=== PATIENT | male | born 1980 | race Two or more races ===

== ENCOUNTER 2022-02-23 19:04 | Emergency (ER) | payer OTHER ==
[~2022-02-23] VITALS: Ht 175.3 cm; Wt 79.4 kg
[~2022-02-23 19:04] MED LIST: ALPR.5 PO; ASPI325 PO; CETI5 PO
[2022-02-23] MEDS ORDERED: Percocet 5-3251 EACH PO (20:07)
== END 2022-02-23 20:13 | disposition home or self-care (01) ==
LOC: ER 19:04
DX: S22.32XA Fracture of one rib, left side, initial encounter for closed fracture (principal); W01.0XXA Fall on same level from slipping, tripping and stumbling without subsequent striking against object, initial encounter
CPT/HCPCS: 71101; 99283-25; A9270

== ENCOUNTER → 2023-07-29 | Outpatient (CLI) | payer OTHER ==
[~2023-07-29] MED LIST changes: +Percocet 5-3251 EACH PO
[2023-08-02 00:05] LABS: APTIMA MEDIA TYPE Urine; C. TRACHOMATIS BY TMA Negative (Negative); N. GONORRHOEAE BY TMA Negative (Negative); SPECIMEN SOURCE Urine
[2023-08-02 00:23] LABS: HIV-1 QNT BY NAAT (COPIES/ML) Not Detected cpy/mL; HIV-1 QNT BY NAAT INTERP Not Detected (Not Detected); HIV-1 QNT NAAT (LOG COPIES/ML) Not Detected
== END ==
LOC: LAB 17:32 → LAB SHORT 17:32
PROVIDERS: Physician Assistant
DX: Z20.9 Contact with and (suspected) exposure to unspecified communicable disease (principal); R36.9 Urethral discharge, unspecified
CPT/HCPCS: 86592; 87491; 87536; 87591

== ENCOUNTER → 2023-08-02 | Outpatient (CLI) | payer OTHER ==
[2023-08-03 11:49] LABS: Candida species (DNA Probe) Negative (NEGATIVE); G. vaginalis (DNA Probe) Negative (NEGATIVE); T. vaginalis (DNA Probe) Negative (NEGATIVE)
== END | disposition home or self-care (01) ==
LOC: LAB 14:10 → LAB SHORT 14:10
PROVIDERS: Physician Assistant
DX: R36.9 Urethral discharge, unspecified (principal)
CPT/HCPCS: 87480; 87510; 87660

== ENCOUNTER 2024-12-17 16:44 | Emergency (ER) | payer OTHER ==
[~2024-12-17] VITALS: Ht 175.3 cm; Wt 80.7 kg
[2024-12-17 18:07] LABS: BASOPHILS ABSOLUTE AUTO 0.04 K/mm3 (0.00-0.23); BASOPHILS PERCENT AUTO 1 % (0-2); EOSINOPHILS ABSOLUTE AUTO 0.04 K/mm3 (0.00-0.68); EOSINOPHILS PERCENT AUTO 1 % (0-6); Hematocrit 43.1 % (37.0-53.0); Hemoglobin 15.1 g/dL (13.5-17.5); IMMATURE GRAN ABSOLUTE AUTO 0.01 K/mm3 (0.00-0.10); IMMATURE GRAN PERCENT AUTO 0 % (0-1); LYMPHOCYTES ABSOLUTE AUTO 1.39 K/mm3 (0.84-5.20); LYMPHOCYTES PERCENT AUTO 17 % (21-46); MONOCYTES PERCENT AUTO 10 % (4-13); Mean Corpuscular Volume 89 fL (80-100); Mean Platelet Volume 9.6 fL (9.1-12.4); NEUTROPHILS ABSOLUTE AUTO 5.88 K/mm3 (1.96-9.15); NEUTROPHILS PERCENT AUTO 72 % (41-73); Platelet Count 285 K/mm3 (150-400); RDW Coefficient Variation 12.8 % (11.7-14.2); RDW Standard Deviation 41.4 fL (35.1-46.3); Red Blood Cell Count 4.87 M/mm3 (4.30-5.90); White Blood Cell Count 8.16 K/mm3 (4.00-11.30)
[2024-12-17 18:23] LABS: Albumin, Blood 4.5 g/dL (3.4-5.0); Albumin/Globulin Ratio 1.5 (0.8-1.8); Bilirubin, Total 1.1 mg/dL (0.1-1.0); Bun/Creatinine Ratio 24.9 (12.0-20.0); Calcium, Blood 9.2 mg/dL (8.5-10.1); Creatinine, Blood 0.68 mg/dL (0.60-1.20); Potassium, Blood 3.9 mmol/L (3.5-5.5); Total Protein, Blood 7.5 g/dL (6.4-8.2)
[2024-12-17 19:57] VITALS: BP 156/114
== END 2024-12-17 20:04 | disposition home or self-care (01) ==
LOC: ER 16:44
PROVIDERS: Student in an Organized Health Care Education/Training Program
DX: R20.2 Paresthesia of skin (principal); R29.818 Other symptoms and signs involving the nervous system
CPT/HCPCS: 70450; 80053; 85025; 93005; 93010; 99284-25

== ENCOUNTER 2025-05-21 09:54 | Day surgery (SDC) | payer OTHER ==
[~2025-05-21] VITALS: Ht 175.3 cm; Wt 82.2 kg
[2025-05-21] MEDS ORDERED: Midazolam HCl 1MG / ML 2ML Vial ONE (10:10)
[2025-05-21] MEDS ORDERED: FentaNYL Citrate 50 MCG/ML 2 ML Injection ONE (10:10)
[2025-05-21] MEDS ORDERED: Dexamethasone Sod Phos 10 MG/ML 1ML VIAL ONE (10:11)
[2025-05-21] MEDS ORDERED: Ondansetron HCl 2 MG / ML 2ML Vial ONE (10:11)
[2025-05-21] MEDS ORDERED: ACYC400 PO (10:18)
[2025-05-21] MEDS ORDERED: PRED20 PO (10:18)
[2025-05-21] MEDS ORDERED: MELO7.5 (10:19)
[2025-05-21] MEDS ORDERED: CeFAZolin Sodium 2,000 MG VIAL ONE (10:35)
[2025-05-21] MEDS ORDERED: Bupivacaine 0.5% W/EPI 1:200000 SDV 30 ML Vial ONE (11:37)
[2025-05-21] MEDS ORDERED: Phenylephrine HCl 100 MCG/ML-NS 10MLSYR (1MG/10ML) ONE (12:22)
--- NOTE | 2025-05-21 13:49 | NUR ---
05/21/25 1349 Nita Evans PATIENT UP TO RECLINER, STATES PAIN IS UNCOMFORTABLE AND STATES IT IS "MORE THAN IT WAS WHEN FIRST CAME OUT OF OR"
[2025-05-21 14:03] VITALS: BP 122/77
== END 2025-05-21 14:48 | disposition home or self-care (01) ==
LOC: ORSCSDS 09:54
PROVIDERS: Orthopaedic Surgery
PROC: 0SBD4ZZ Excision of Left Knee Joint, Percutaneous Endoscopic Approach (ICD-10-PCS; principal; 2025-05-21 11:55)
DX: M23.201 Derangement of unspecified lateral meniscus due to old tear or injury, left knee (principal); M23.222 Derangement of posterior horn of medial meniscus due to old tear or injury, left knee; F17.290 Nicotine dependence, other tobacco product, uncomplicated; G47.33 Obstructive sleep apnea (adult) (pediatric); F41.9 Anxiety disorder, unspecified; Z79.899 Other long term (current) drug therapy
CPT/HCPCS: A9270; J0166; J0690; J1100; J1720; J2250; J2371; J2405; J2704; J3010; J7120

== ENCOUNTER 2025-06-23 01:22 | Day surgery (SDC) | payer OTHER ==
[2025-06-23] VITALS (12 sets, daily range): BP systolic 115–137; BP diastolic 72–96
[~2025-06-23] VITALS: Ht 175.3 cm; Wt 84.7 kg
[~2025-06-23 01:22] MED LIST changes: +ACYC400 PO; +Dexamethasone Sod Phos 10 MG/ML 1ML VIAL IV SCH; +MELO7.5; +PRED20 PO
[2025-06-23] MEDS ORDERED: IMMUN GLOB G(IGG)/PRO/IGA 0-50 100 ML IV SCH (06:00)
[2025-06-23] MEDS ORDERED: Dexamethasone Sod Phos 10 MG/ML 1ML VIAL IV SCH (07:05)
[2025-06-23 08:02] LABS: BASOPHILS ABSOLUTE AUTO 0.04 K/mm3 (0.00-0.23); BASOPHILS PERCENT AUTO 1 % (0-2); EOSINOPHILS ABSOLUTE AUTO 0.12 K/mm3 (0.00-0.68); EOSINOPHILS PERCENT AUTO 2 % (0-6); Hematocrit 45.6 % (37.0-53.0); Hemoglobin 15.9 g/dL (13.5-17.5); IMMATURE GRAN ABSOLUTE AUTO 0.01 K/mm3 (0.00-0.10); IMMATURE GRAN PERCENT AUTO 0 % (0-1); LYMPHOCYTES ABSOLUTE AUTO 2.78 K/mm3 (0.84-5.20); LYMPHOCYTES PERCENT AUTO 38 % (21-46); MONOCYTES ABSOLUTE AUTO 0.88 K/mm3 (0.16-1.47); MONOCYTES PERCENT AUTO 12 % (4-13); Mean Corpuscular HGB Conc 34.9 g/dL (31.5-36.5); Mean Corpuscular Volume 88 fL (80-100); NEUTROPHILS ABSOLUTE AUTO 3.54 K/mm3 (1.96-9.15); NEUTROPHILS PERCENT AUTO 48 % (41-73); NRBC ABSOLUTE 0.00 K/mm3 (0.00-0.02); NRBC Auto 0.0 /100 WBC (0.0-0.2); Platelet Count 293 K/mm3 (150-400); RDW Coefficient Variation 13.3 % (11.7-14.2); RDW Standard Deviation 43.3 fL (35.1-46.3)
[2025-06-23 08:27] LABS: Blood Urea Nitrogen 18.0 mg/dL (8-24); Creatinine, Blood 0.77 mg/dL (0.60-1.20)
== END 2025-06-23 12:26 | disposition home or self-care (01) ==
LOC: ATC 01:22
PROVIDERS: Psychiatry & Neurology Neurology
DX: G61.81 Chronic inflammatory demyelinating polyneuritis (principal)
CPT/HCPCS: 82565; 82784; 84520; 85025; 96365; 96366; 96375; A9270; J1100; J1459

== ENCOUNTER → 2025-08-02 | Outpatient (CLI) | payer OTHER ==
[~2025-08-02] MED LIST changes: -Dexamethasone Sod Phos 10 MG/ML 1ML VIAL IV SCH
[2025-08-02 16:23] LABS: Chlamydia Trachomatis Urine NOT DETECTED (NOT DETECT); Neisseria Gonorrhoea Urine NOT DETECTED (NOT DETECT)
== END ==
LOC: LAB 13:31 → LAB SHORT 13:31
PROVIDERS: Physician Assistant
DX: Z72.51 High risk heterosexual behavior (principal)
CPT/HCPCS: 87086; 87491; 87591